=== PATIENT | male | born 1985 | race Caucasian/White ===

== ENCOUNTER 2020-02-25 07:40 | Outpatient (CLI) | payer BC, SELFPAY ==
--- NOTE | 2020-02-25 07:49 | ECHO_ITS ---
Patient Info Name: Hemant Alonzo Age: 34 years : 1985 Gender: Male Ht: 75 in Wt: 190 lbs BSA: 2.14 m2 HR: 80 bpm BP: 132 / 75 mmHg Technical Quality: Good Exam Date: 02/25/2020 8:22 AM Exam Location: [facility] Patient Status: Outpatient Admit Date: 02/25/2020 Staff Ordering Physician: Casper Washington PA-C Petroleum Refinery Worker: Michael Nguyen RDCS, RT Attending Provider: Casper Washington PA-C Referring Physician: Padmini DONALDSON; Exam Type: CA echo doppler color flow Study Info Indications R55 - Syncope and collapse Complete two-dimensional, color flow and Doppler transthoracic echocardiogram is performed. Strain analysis performed. Summary 1. Complete two-dimensional, color flow and Doppler transthoracic echocardiogram is performed. 2. Left ventricular chamber dimension is normal. 3. Left ventricular systolic function is normal, estimated at 55-60%. 4. The left ventricular diastolic function is normal. 5. E/e' 6 is not elevated. 6. Global longitudinal strain is abnormal at -15.1%. 7. Right atrial mass attached to atrial septum measuring 0.8 x 2.0 cm suggestive of non-obstructive atrial myxoma. Consider JUAN for further evaluation if clinically indicated. Left Ventricle Global longitudinal strain is abnormal at -15.1%. E/e' 6 is not elevated. Left ventricular chamber dimension is normal. Left ventricular systolic function is normal, estimated at 55-60%. The left ventricular diastolic function is normal. Right Ventricle Right ventricular chamber dimension is normal. Right ventricular systolic function is normal. Left Atria Left atrial chamber dimension is normal. Right Atria Right atrial mass attached to atrial septum measuring 0.8 x 2.0 cm suggestive of non-obstructive atrial myxoma. Consider JUAN for further evaluation if clinically indicated. Right atrial chamber dimension is normal. Aortic Valve The aortic valve is trileaflet. There is no aortic valve stenosis. There is no aortic valve regurgitation. Pulmonic Valve There is no pulmonic regurgitation. Mitral Valve There is no mitral valve stenosis. There is no mitral valve regurgitation. Tricuspid Valve There is no tricuspid valve regurgitation. Pericardium/Pleural There is no pericardial effusion. Inferior Vena Cava Normal inferior vena cava with >50% collapse upon inspiration consistent with normal right atrial pressure, 5 mmHg. Aorta The aortic root size at the sinus of Valsalva is normal. Left Ventricular Outflow Tract Name Value Normal LVOT 2D LVOT Diameter 2.0 cm LVOT Doppler LVOT Peak Velocity 102 cm/s LVOT Peak Gradient 4 mmHg LVOT Mean Gradient 3 mmHg LVOT VTI 20 cm LVOT VTI/AV VTI Ratio 1.0 LVOT Stroke Volume 65 ml LVOT CO 5.0 l/min LVOT CI 2.3 l/min/m2 Mitral Valve
== END 2020-02-25 07:41 | disposition home or self-care (01) ==
PROVIDERS: PCP Physician Assistant; Visit Provider Physician Assistant
DX: R42 Dizziness and giddiness (principal); R55 Syncope and collapse
CPT/HCPCS: 93306

== ENCOUNTER 2020-10-21 08:36 | Outpatient (CLI) | payer BC, SELFPAY ==
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
[2020-11-16 17:33] VITALS: BMI 25.6
== END 2020-10-24 11:46 | disposition home or self-care (01) ==
PROVIDERS: PCP Physician Assistant; Visit Provider Internal Medicine Cardiovascular Disease
DX: G47.10 Hypersomnia, unspecified (principal)
CPT/HCPCS: 95806

== ENCOUNTER 2020-11-20 09:30 | Emergency (ER) | payer OTHER, BC, SELFPAY ==
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
[2020-11-20 09:40] VITALS: BP 138/85; PULSE 90; RESP 20; TEMP 36.8; O2SAT 100
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
[2020-11-20] MEDS: ACETAMINOPHEN 500 MG TABLET 1000 MG PO (11:16)
[2020-11-20 11:20] VITALS: BP 122/82; PULSE 80; RESP 20; O2SAT 100
== END 2020-11-20 11:25 | disposition home or self-care (01) ==
PROVIDERS: Emergency Provider Emergency Medicine; PCP Physician Assistant
DX: S43.402A Unspecified sprain of left shoulder joint, initial encounter (principal); E78.5 Hyperlipidemia, unspecified; F43.12 Post-traumatic stress disorder, chronic; F41.1 Generalized anxiety disorder; F33.9 Major depressive disorder, recurrent, unspecified; D15.1 Benign neoplasm of heart; V49.00XA Driver injured in collision with unspecified motor vehicles in nontraffic accident, initial encounter
CPT/HCPCS: 73030; 99283; A4565; A9270

== ENCOUNTER 2023-04-10 10:26 | Outpatient (CLI) | payer BC, SELFPAY ==
[2023-04-10 11:47] LABS: Influenza A QL RT-PCR Negative (Negative); Influenza B QL RT-PCR Negative (Negative); RSV RNA, RT-PCR Negative (Negative); SARS-CoV-2 RNA PCR Negative (Negative)
== END 2023-04-10 10:27 | disposition home or self-care (01) ==
LOC: ANHLAB 10:27
PROVIDERS: PCP Physician Assistant; Visit Provider Internal Medicine
DX: J06.9 Acute upper respiratory infection, unspecified (principal); Z20.822 Contact with and (suspected) exposure to COVID-19
CPT/HCPCS: 87637

== ENCOUNTER 2024-10-09 16:11 | Emergency (ER) | payer OTHER, SELFPAY ==
--- NOTE | ~2024-10-09 | XR_ITS ---
EXAMINATION: XR knee RT min 4V DATE: 10/09/2024 16:47 INDICATION: Fall with laceration and anterolateral pain at the right knee TECHNIQUE: Anteroposterior, 2 oblique and crosstable lateral views of the right knee were obtained COMPARISON: None. FINDINGS: Alignment is normal. No fracture. Joint spaces appear normal on nonweightbearing imaging. No joint e ffusion/layering lipohemarthrosis. Linear lucency projecting over the superficial soft tissues anteri or to the patellar tendon likely representing the site of reported laceration. No evident radiopaque foreign bodies. IMPRESSION: 1. Infrapatellar soft tissue laceration. No osseous abnormality, joint effusion or radiopaque foreign bodies at the right knee. Reviewed, dictated and finalized at location A.
--- OUTSIDE RECORDS SUMMARY | 2024-10-09 16:15 | XMS_ITS | Clinical Summary ---
Author Organization [facility] Address [address] [place] [id number] Care Team Providers Care Potato Chip Cooker Machine Name Role Phone Mazin Peraza MD Primary Care Provider [phone] Allergies Active Allergy Reactions Criticality Noted Date Comments Penicillins Rash Medium 11/11/2018 Medications celecoxib (CeleBREX) 200 mg capsule Take 1 capsule (200 mg total) by mouth daily Active sertraline (ZOLOFT) 50 mg tablet Take 1 tablet (50 mg total) by mouth nightly at bedtime 4 Active buPROPion XL (WELLBUTRIN XL) 300 mg 24 hr tablet Take 1 tablet (300 mg total) by mouth every morning 4 Active busPIRone (BUSPAR) 5 mg tablet TAKE 1 TABLET BY MOUTH THREE TIMES DAILY WITH MEALS DISCONTINUE 7.5MG DOSE 4 Active multivitamin tablet Take 1 tablet by mouth daily Active omega-3 fatty acids-fish oil 300-1,000 mg capsule Take 1 capsule (1 g total) by mouth daily Active baclofen (LIORESAL) 10 mg tablet Take 1 tablet (10 mg total) by mouth 2 (two) times a day 9 Active Active Problems No known active problems Social History Tobacco Use Types Packs/Day Years Used Date Smoking Tobacco: Every Day Personal Safety Answer Date Recorded Getting School Help Needed Not on file 05/17 Sex and Gender Information Value Date Recorded Sex Assigned at Not on file 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 Gender Identity Not on file Sexual Orientation Not on file Obstetrics History Last Filed Vital Signs Vital Sign Reading Time Taken Comments Blood Pressure 120/78 08/09/2023 8:46 AM CDT Pulse 82 08/09/2023 8:46 AM CDT Temperature 37.1 C (98.8 F) 08/09/2023 8:46 AM CDT Respiratory Rate 16 08/09/2023 8:46 AM CDT Oxygen Saturation 97% 08/09/2023 8:46 AM CDT Inhaled Oxygen Concentration - - Weight 93 kg (205 lb) 08/09/2023 8:46 AM CDT Height 190.5 cm (6' 3) 08/09/2023 8:46 AM CDT Body Mass Index 25.62 08/09/2023 8:46 AM CDT Plan of Treatment Health Maintenance Due Date Last Done Comments Depression Screening 1985 Hepatitis C Screening 1985 DTaP/Tdap/Td Vaccine (1 - Tdap) 09/06/1994 Varicella Vaccines (1 of 2 - 13+ 2-dose series) 1996 Hepatitis B Screening 09/06/2001 Regular Well Visit/Exam 18-64 09/06/2001 Pneumococcal vaccine <65 (1 of 2 - PCV) 09/06/2002 HPV Vaccines (1 - 3-dose SCDM series) 09/06/2010 Influenza Vaccine (#1) 2024 [place] [employer] [place] [employer] [place] [facility] Care Teams Potato Chip Cooker Machine Relationship Specialty Start Date End Date Mazin Peraza MD [address] [facility] [address] [place] [address] PCP - General 05/28/17
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
--- OUTSIDE RECORDS SUMMARY | 2024-10-09 16:15 | XMS_ITS | Patient Health Record ---
Author Organization [facility] [employer] Address [address] [place] [address] Care Team Providers Care Guard Manager Name Role Phone Sydyady Mazin [place] Primary Care Provider Natalee Moncada Unavailable [phone] Allergies Allergen (clinical drug ingredient) Drug/Non Drug Allergy documented on EMR Reaction Allergy Type Onset Date Status Substance with penicillin structure and antibacterial mechanism of action (substance) Penicillins Unknown Drug Allergy 04/25/2023 Active Reason For Referral No Information Medications Medication SIG (Take, Route, Frequency, Duration) Notes Start Date End Date Status Celecoxib 200 MG Oral 04/25/2023 No t-Taking Baclofen 20 MG Oral PRN 04/25/2023 Acti ve buPROPion HCl ER (XL) 300 MG 1 tablet in the morning Oral Once a day; Duration: 90 days 04/25/2023 Active Acetaminophen-Codeine #3 300-30 MG Oral 04/25/2023 Not-Taking Venlafaxine HCl ER 75 MG Oral 04/25/2023 Not-Taking Cetirizine HCl 10 MG Oral 04/25/2023 Not-Taking Baclofen 10 MG Oral 04/25/2023 Not- Taking Venlafaxine HCl ER 37.5 MG Oral 04/25/2023 Not-Taking QUEtiapine Fumarate 25 MG Oral 04/25/2023 Not-Taking Immunizations Vaccine Route Administration Date Status Comme nts Jose Covid-19 Vaccine Unknown 05/23/2020 Administere d Social History Tobacco Use: Social History Observation Description Date Details (start date - stop date) Current Smoker NA - NA Sex Assigned At : Social History Observation Description Sex Assigned At Male Tobacco Control (Standard) Question Answer Notes Tobacco use: Current smoker How often do you smoke cigarettes? Every day How many cigarettes a day do you smoke? 11-20 How soon after you wake up do you smoke your fir st cigarette? 6-30 minutes Are you interested in quitting? Ready to quit Problems Problem Type SNOMED Code ICD Code Onset Dates Problem Status W/U Status Risk Notes Problem Cannabis dependence (83105656) Cannabis dependence, uncomplicated (F12.20) 05/24/19 Active confirmed Problem Moderate recurrent major depression (73233450) Major depressive disorder, recurrent, moderate (F33.1) 06/21/19 Active confirmed Problem Generalized anxiety disorder (98706401) Generalized anxiety disorder (F41.1) 07/22/19 Active confirmed Problem Posttraumatic stress disorder (43744470) Post-traumatic stress disorder, chronic (F43.12) 06/21/19 24 Active confirmed Problem Primary insomnia (9334372) Primary insomnia (F51.01) 04/25/19 24 Active confirmed Problem Tobacco use (124945570) Tobacco use (Z72.0) 06/21/19 24 Active confirmed Problem Long-term current use of drug therapy (477195552) 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) 04/25/19 24 Active confirmed Problem Panic disorder (677797923) Panic disorder [episodic paroxysmal anxiety] without agoraphobia (F41.0) 05/24/19 24 Active confirmed Problem Mild recurrent major depression (94211184) MDD (major depressive disorder), recurrent episode, mild (F33.0) Active confirmed Vital Signs Heart Rate 111 /min 07/23/2024 Respiratory Rate 16 /min 07/23/2024 Height-cm 190.50 cm 07/23/2024 Blood pressure diastolic 66 mm Hg 07/23/2024 Weight-kg 95.98 kg 07/23/2024 Height 75.00 in 07/23/2024 Blood pressure systolic 90 mm Hg 07/23/2024 Weight 211.6 lbs 07/23/2024 BMI 26.45 kg/m2 07/23/2024 Encounters Encounter Location Date Provider Diagnosis [facility] [address] [address] 01/02/2024 Natalee Burrell Major depressive disorder, recurrent, moderate F33.1 ; Generalized anxiety disorder F41.1 ; Post-traumatic stress disorder, chronic F43.12 ; Panic disorder [episodic paroxysmal anxiety] without agoraphobia F41.0 ; Primary insomnia F51.01 ; Tobacco use Z72.0 ; Cannabis dependence, uncomplicated F12.20 and Other ferry terminal agent (current) drug therapy Z79.899 [facility], [facility] [address] [place] [address] 07/23/2024 Natalee Thery Encounter for screen ing for depression Z13.31 ; MDD (major depressive disorder), recurrent episode, mild F33.0 ; Encounter for screening for cardiovascular disorders Z13.6 ; Generalized anxiety disorder F41.1 ; Post-traumatic stress disorder, chronic F43.12 ; Panic disorder [episodic paroxysmal anxiety] without agoraphobia F41.0 ; Primary insomnia F51.01 ; Tobacco use Z72.0 ; Cannabis dependence, uncomplicated F12.20 ; Other ferry terminal agent (current) drug therapy Z79.899 and Major depressive disorder, recurrent, moderate F33.1 [facility], [facility] [address] [place] [address] 10/17/2023 Natalee Thery Major depressive disorder, recurrent, moderate F33.1 [facility], [facility] [address] [place] [address] 11/22/2023 Natalee Thery Major depressive disorder, recurrent, moderate F33.1 [facility], [facility] [address] [place] [address] 11/22/2023 Natalee Thery Major depressive disorder, recurrent, moderate F33.1 [facility], [facility] [address] [place] [address] 12/19/2023 Natalee Thery [facility], [facility] [address] [place] [address] 12/25/2023 Natalee Thery Major depressive disorder, recurrent, moderate F33.1 [facility], [facility] [address] [place] [address] 12/31/2023 Natalee Thery [facility], [facility] [address] [place] [address] 06/25/2024 Natalee Thery Major depressive disorder, recurrent, moderate F33.1 [facility], [facility] [address] [place] [address] 09/24/2024 Natalee Burrell [facility], [facility] [address] [place] [address] 12/25/2023 Natalee Burrell [facility], [facility] [address] [place] [address] 12/28/2023 Natalee Burrell [facility], [facility] [address] [place] [address] 12/29/2023 Natalee Burrell [facility], [facility] [address] [place] [address] 07/20/2024 Natalee Burrell Assessments Encounter Date Diagnosis (ICD Code) Assessment Notes Treatment Notes Treatment Clinical Notes Section Notes 10/17/2023 Major depressive disorder, recurrent, moderate (ICD-10 - F33.1) 11/22/2023 Major depressive disorder, recurrent, moderate (ICD-10 - F33.1) 11/22/2023 Major depressive disorder, recurrent, moderate (ICD-10 - F33.1) 12/25/2023 Major depressive disorder, recurrent, moderate (ICD-10 - F33.1) 01/02/2024 Major depressive disorder, recurrent, moderate (ICD-10 - F33.1) 01/02/2024 Generalized anxiety disorder (ICD-10 - F41.1) 06/25/2024 Major depressive disorder, recurrent, moderate (ICD-10 - F33.1) 07/23/2024 Encounter for screening for depression (ICD-10 - Z13.31) 1 Depression patient would like to decrease Zoloft 25 mg daily and plan to stop - has 50 mg dose just filled rx - and will split in half until finish then stop Wellbutrin XL 300 mg daily in am 2. Anxiety 3. PTSD STABLE 4. Tobacco Smoking Education Do not smoke. Nicotine and other chemicals in cigarettes and cigars can cause lung damage. Ask your healthcare provider for information if you currently smoke and need help to quit. E-cigarettes or smokeless tobacco still contain nicotine. Talk to your healthcare provider before you use these products. education on decrease to stopping nicotine products and stop smoking hotline given -Quit - Yes [place] Tobacco Quitline Call a Smoking Quitline The [employer] Smoking Quitline, (9-148-44N-QUIT) Smokefree.gov, which connects you with your State's Quitline, (9-484-ACPYFPD) Veterans Smoking Quitline, (0-330-OJTAEWC) 5. Cannabis Cannabis Use Education Recommend decrease/stop cannabis use as it can negatively impact mood, motivation, anxiety, sleep, focus/concentrat ion/memory (vigilance, elasticity, processing and attention); can also contribute to development of psychosis. Recommend decrease/stop cannabis use as it may be negatively impacting mood, motivation, anxiety, sleep, focus; can also contribute to development of psychosis Cannabis/marijua na information: http__s://[place]atar[place]yna.n ih.gov/publicati ons/drugfacts/[place] nnabis-marijuana http__s://Backyard.Ora[employer]/ca wsjjld-edt-wnemu uwk-wgoejpfay-bt hd/ educated on all medications, benefits, side effects and risk, and educated on depression, anxiety, and ADHD, mood d/o and educated on compliance of medications, metabolic and movement d/o education appointment is, continue therapy discussion with patient about course of treatment and patient instructions. education on serotonin syndrome SSRI/SNRI side effects discussed including but not limited to, gastric upset, nausea, vomiting, diarrhea and/or constipation, weight changes, sexual side effects including loss of libido, increased suicidal thoughts/behavio rs in children and young adults, and serotonin syndrome. Medication Management and Follow-Up - Plan: - Schedule follow-up appointments every 1-3 months to monitor the patient's response to the medication regimen. - Reinforce the importance of avoiding recreational drug use due to potential neurotoxicity and interactions with prescribed medications. 07/23/2024 MDD (major depressive disorder), recurrent episode, mild (ICD-10 - F33.0) 1 Depression patient would like to decrease Zoloft 25 mg daily and plan to stop - has 50 mg dose just filled rx - and will split in half until finish then stop Wellbutrin XL 300 mg daily in am 2. Anxiety 3. PTSD STABLE 4. Tobacco Smoking Education Do not smoke. Nicotine and other chemicals in cigarettes and cigars can cause lung damage. Ask your healthcare provider for information if you currently smoke and need help to quit. E-cigarettes or smokeless tobacco still contain nicotine. Talk to your healthcare provider before you use these products. education on decrease to stopping nicotine products and stop smoking hotline given Quit - Yes [place] Tobacco Quitline Call a Smoking Quitline The [employer] Smoking Quitline, (2-756-69W-QUIT) Smokefree.gov, which connects you with your State's Quitline, (7-245-WWULAYV) Veterans Smoking Quitline, (1-628-KVASGQV) 5. Cannabis Cannabis Use Education Recommend decrease/stop cannabis use as it can negatively impact mood, motivation, anxiety, sleep, focus/concentrat ion/memory (vigilance, elasticity, processing and attention); can also contribute to development of psychosis. Recommend decrease/stop cannabis use as it may be negatively impacting mood, motivation, anxiety, sleep, focus; can also contribute to development of psychosis Cannabis/marijua na information: http__s://[place].n ih.gov/publicati ons/drugfacts/[place] nnabis-marijuana http__s://Backyard.OraMet[employer]/ca qcopyy-fml-vsuhf zvn-zwszafqig-ha hd/ educated on all medications, benefits, side effects and risk, and educated on depression, anxiety, and ADHD, mood d/o and educated on compliance of medications, metabolic and movement d/o education appointment is, continue therapy discussion with patient about course of treatment and patient instructions. education on serotonin syndrome SSRI/SNRI side effects discussed including but not limited to, gastric upset, nausea, vomiting, diarrhea and/or constipation, weight changes, sexual side effects including loss of libido, increased suicidal thoughts/behavio rs in children and young adults, and serotonin syndrome. Medication Management and Follow-Up - Plan: - Schedule follow-up appointments every 1-3 months to monitor the patient's response to the medication regimen. - Reinforce the importance of avoiding recreational drug use due to potential neurotoxicity and interactions with prescribed medications. 07/23/2024 Encounter for screening for cardiovascular disorders (ICD-10 - Z13.6) 1 Depression patient would like to decrease Zoloft 25 mg daily and plan to stop - has 50 mg dose just filled rx - and will split in half until finish then stop Wellbutrin XL 300 mg daily in am 2. Anxiety 3. PTSD STABLE 4. Tobacco Smoking Education Do not smoke. Nicotine and other chemicals in cigarettes and cigars can cause lung damage. Ask your healthcare provider for information if you currently smoke and need help to quit. E-cigarettes or smokeless tobacco still contain nicotine. Talk to your healthcare provider before you use these products. education on decrease to stopping nicotine products and stop smoking hotline given Quit - Yes [place] Tobacco Quitline Call a Smoking Quitline The [employer] Smoking Quitline, (0-741-23A-QUIT) Smokefree.gov, which connects you with your State's Quitline, (0-390-KWNKYEB) Veterans Smoking Quitline, (9-822-DCWRDTW) 5. Cannabis Cannabis Use Education Recommend decrease/stop cannabis use as it can negatively impact mood, motivation, anxiety, sleep, focus/concentrat ion/memory (vigilance, elasticity, processing and attention); can also contribute to development of psychosis. Recommend decrease/stop cannabis use as it may be negatively impacting mood, motivation, anxiety, sleep, focus; can also contribute to development of psychosis Cannabis/marijua na information: http__s://[place].n ih.gov/publicati ons/drugfacts/[place] nnabis-marijuana http__s://www.T[employer]et[employer].23andMe/ca ziqqpy-sct-oinga nkj-omdmookqz-qo hd/ educated on all medications, benefits, side effects and risk, and educated on depression, anxiety, and ADHD, mood d/o and educated on compliance of medications, metabolic and movement d/o education appointment is, continue therapy discussion with patient about course of treatment and patient instructions. education on serotonin syndrome SSRI/SNRI side effects discussed including but not limited to, gastric upset, nausea, vomiting, diarrhea and/or constipation, weight changes, sexual side effects including loss of libido, increased suicidal thoughts/behavio rs in children and young adults, and serotonin syndrome. Medication Management and Follow-Up - Plan: - Schedule follow-up appointments every 1-3 months to monitor the patient's response to the medication regimen. - Reinforce the importance of avoiding recreational drug use due to potential neurotoxicity and interactions with prescribed medications. 01/02/2024 Post-traumatic stress disorder, chronic (ICD-10 - F43.12) 07/23/2024 Generalized anxiety disorder (ICD-10 - F41.1) 1 Depression patient would like to decrease Zoloft 25 mg daily and plan to stop - has 50 mg dose just filled rx - and will split in half until finish then stop Wellbutrin XL 300 mg daily in am 2. Anxiety 3. PTSD STABLE 4. Tobacco Smoking Education Do not smoke. Nicotine and other chemicals in cigarettes and cigars can cause lung damage. Ask your healthcare provider for information if you currently smoke and need help to quit. E-cigarettes or smokeless tobacco still contain nicotine. Talk to your healthcare provider before you use these products. education on decrease to stopping nicotine products and stop smoking hotline given 0009-Quit - Yes [place] Tobacco Quitline Call a Smoking Quitline The [employer] Smoking Quitline, (4-661-69W-QUIT) Smokefree.gov, which connects you with your State's Quitline, (1-931-BAPWAWN) Veterans Smoking Quitline, (9-639-DNKFKSW) 5. Cannabis Cannabis Use Education Recommend decrease/stop cannabis use as it can negatively impact mood, motivation, anxiety, sleep, focus/concentrat ion/memory (vigilance, elasticity, processing and attention); can also contribute to development of psychosis. Recommend decrease/stop cannabis use as it may be negatively impacting mood, motivation, anxiety, sleep, focus; can also contribute to development of psychosis Cannabis/marijua na information: http__s://[place]atar[place].n ih.gov/publicati ons/drugfacts/ca nnabis-marijuana http__s://www.Stir.com/ca tbzneq-bhk-opiaa sij-gsutfzlgv-fg hd/ educated on all medications, benefits, side effects and risk, and educated on depression, anxiety, and ADHD, mood d/o and educated on compliance of medications, metabolic and movement d/o education appointment is, continue therapy discussion with patient about course of treatment and patient instructions. education on serotonin syndrome SSRI/SNRI side effects discussed including but not limited to, gastric upset, nausea, vomiting, diarrhea and/or constipation, weight changes, sexual side effects including loss of libido, increased suicidal thoughts/behavio rs in children and young adults, and serotonin syndrome. Medication Management and Follow-Up - Plan: - Schedule follow-up appointments every 1-3 months to monitor the patient's response to the medication regimen. - Reinforce the importance of avoiding recreational drug use due to potential neurotoxicity and interactions with prescribed medications. 01/02/2024 Panic disorder [episodic paroxysmal anxiety] without agoraphobia (ICD-10 - F41.0) 07/23/2024 Post-traumatic stress disorder, chronic (ICD-10 - F43.12) 1 Depression patient would like to decrease Zoloft 25 mg daily and plan to stop - has 50 mg dose just filled rx - and will split in half until finish then stop Wellbutrin XL 300 mg daily in am 2. Anxiety 3. PTSD STABLE 4. Tobacco Smoking Education Do not smoke. Nicotine and other chemicals in cigarettes and cigars can cause lung damage. Ask your healthcare provider for information if you currently smoke and need help to quit. E-cigarettes or smokeless tobacco still contain nicotine. Talk to your healthcare provider before you use these products. education on decrease to stopping nicotine products and stop smoking hotline given 081-Quit - Yes [place] Tobacco Quitline Call a Smoking Quitline The [employer] Smoking Quitline, (1-961-25H-QUIT) Smokefree.gov, which connects you with your State's Quitline, (8-767-JJEWRUI) Veterans Smoking Quitline, (8-623-URBHVZY) 5. Cannabis Cannabis Use Education Recommend decrease/stop cannabis use as it can negatively impact mood, motivation, anxiety, sleep, focus/concentrat ion/memory (vigilance, elasticity, processing and attention); can also contribute to development of psychosis. Recommend decrease/stop cannabis use as it may be negatively impacting mood, motivation, anxiety, sleep, focus; can also contribute to development of psychosis Cannabis/marijua na information: http__s://[place]atar[place]yna.n ih.gov/publicati ons/drugfacts/[place] nnabis-marijuana http__s://Backyard.OraMetrix/ca jnrjsy-usi-gcpmw dti-osukroqcp-ou hd/ educated on all medications, benefits, side effects and risk, and educated on depression, anxiety, and ADHD, mood d/o and educated on compliance of medications, metabolic and movement d/o education appointment is, continue therapy discussion with patient about course of treatment and patient instructions. education on serotonin syndrome SSRI/SNRI side effects discussed including but not limited to, gastric upset, nausea, vomiting, diarrhea and/or constipation, weight changes, sexual side effects including loss of libido, increased suicidal thoughts/behavio rs in children and young adults, and serotonin syndrome. Medication Management and Follow-Up - Plan: - Schedule follow-up appointments every 1-3 months to monitor the patient's response to the medication regimen. - Reinforce the importance of avoiding recreational drug use due to potential neurotoxicity and interactions with prescribed medications. 01/02/2024 Primary insomnia (ICD-10 - F51.01) 01/02/2024 Tobacco use (ICD-10 - Z72.0) 07/23/2024 Panic disorder [episodic paroxysmal anxiety] without agoraphobia (ICD-10 - F41.0) 1 Depression patient would like to decrease Zoloft 25 mg daily and plan to stop - has 50 mg dose just filled rx - and will split in half until finish then stop Wellbutrin XL 300 mg daily in am 2. Anxiety 3. PTSD STABLE 4. Tobacco Smoking Education Do not smoke. Nicotine and other chemicals in cigarettes and cigars can cause lung damage. Ask your healthcare provider for information if you currently smoke and need help to quit. E-cigarettes or smokeless tobacco still contain nicotine. Talk to your healthcare provider before you use these products. education on decrease to stopping nicotine products and stop smoking hotline given Quit - Yes [place] Tobacco Quitline Call a Smoking Quitline The [employer] Smoking Quitline, (3-851-71O-QUIT) Smokefree.gov, which connects you with your State's Quitline, (8-658-JPSKYNS) Veterans Smoking Quitline, (2-422-VFQRQDZ) 5. Cannabis Cannabis Use Education Recommend decrease/stop cannabis use as it can negatively impact mood, motivation, anxiety, sleep, focus/concentrat ion/memory (vigilance, elasticity, processing and attention); can also contribute to development of psychosis. Recommend decrease/stop cannabis use as it may be negatively impacting mood, motivation, anxiety, sleep, focus; can also contribute to development of psychosis Cannabis/marijua na information: http__s://[place]atarzyna.n ih.gov/publicati ons/drugfacts/[place] nnabis-marijuana http__s://Backyard.OraMetrix/ca tgloxs-rat-qbuge qpk-dsbxmsqxm-qj hd/ educated on all medications, benefits, side effects and risk, and educated on depression, anxiety, and ADHD, mood d/o and educated on compliance of medications, metabolic and movement d/o education appointment is, continue therapy discussion with patient about course of treatment and patient instructions. education on serotonin syndrome SSRI/SNRI side effects discussed including but not limited to, gastric upset, nausea, vomiting, diarrhea and/or constipation, weight changes, sexual side effects including loss of libido, increased suicidal thoughts/behavio rs in children and young adults, and serotonin syndrome. Medication Management and Follow-Up - Plan: - Schedule follow-up appointments every 1-3 months to monitor the patient's response to the medication regimen. - Reinforce the importance of avoiding recreational drug use due to potential neurotoxicity and interactions with prescribed medications. 07/23/2024 Primary insomnia (ICD-10 - F51.01) 1 Depression patient would like to decrease Zoloft 25 mg daily and plan to stop - has 50 mg dose just filled rx - and will split in half until finish then stop Wellbutrin XL 300 mg daily in am 2. Anxiety 3. PTSD STABLE 4. Tobacco Smoking Education Do not smoke. Nicotine and other chemicals in cigarettes and cigars can cause lung damage. Ask your healthcare provider for information if you currently smoke and need help to quit. E-cigarettes or smokeless tobacco still contain nicotine. Talk to your healthcare provider before you use these products. education on decrease to stopping nicotine products and stop smoking hotline given 1-261-Quit - Yes [place] Tobacco Quitline Call a Smoking Quitline The [employer] Smoking Quitline, (5-352-11T-QUIT) Smokefree.gov, which connects you with your State's Quitline, (4-898-KJWKBNC) Veterans Smoking Quitline, (2-636-XHITZER) 5. Cannabis Cannabis Use Education Recommend decrease/stop cannabis use as it can negatively impact mood, motivation, anxiety, sleep, focus/concentrat ion/memory (vigilance, elasticity, processing and attention); can also contribute to development of psychosis. Recommend decrease/stop cannabis use as it may be negatively impacting mood, motivation, anxiety, sleep, focus; can also contribute to development of psychosis Cannabis/marijua na information: http__s://[place]atarzyna.n ih.gov/publicati ons/drugfacts/[place] nnabis-marijuana http__s://Backyard.OraMetrix/ca lsqext-qio-jwidy bvm-pzbobxook-ic hd/ educated on all medications, benefits, side effects and risk, and educated on depression, anxiety, and ADHD, mood d/o and educated on compliance of medications, metabolic and movement d/o education appointment is, continue therapy discussion with patient about course of treatment and patient instructions. education on serotonin syndrome SSRI/SNRI side effects discussed including but not limited to, gastric upset, nausea, vomiting, diarrhea and/or constipation, weight changes, sexual side effects including loss of libido, increased suicidal thoughts/behavio rs in children and young adults, and serotonin syndrome. Medication Management and Follow-Up - Plan: - Schedule follow-up appointments every 1-3 months to monitor the patient's response to the medication regimen. - Reinforce the importance of avoiding recreational drug use due to potential neurotoxicity and interactions with prescribed medications. 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 Anxiety 3. PTSD STABLE 4. Tobacco Smoking Education Do not smoke. Nicotine and other chemicals in cigarettes and cigars can cause lung damage. Ask your healthcare provider for information if you currently smoke and need help to quit. E-cigarettes or smokeless tobacco still contain nicotine. Talk to your healthcare provider before you use these products. education on decrease to stopping nicotine products and stop smoking hotline given Quit - Yes [place] Tobacco Quitline Call a Smoking Quitline The [employer] Smoking Quitline, (2-531-53P-QUIT) Smokefree.gov, which connects you with your [facility]'s Quitline, (4-905-DXDYIDT) Veterans Smoking Quitline, (9-452-ZEUUHAO) 5. Cannabis Cannabis Use Education Recommend decrease/stop cannabis use as it can negatively impact mood, motivation, anxiety, sleep, focus/concentrat ion/memory (vigilance, elasticity, processing and attention); can also contribute to development of psychosis. Recommend decrease/stop cannabis use as it may be negatively impacting mood, motivation, anxiety, sleep, focus; can also contribute to development of psychosis Cannabis/marijua na information: http__s://katarzyna.n ih.gov/publicati ons/drugfacts/[place] nnabis-marijuana http__s://www.Stir.23andMe/ca lrfkce-yri-pcruc lod-rohukxuvr-wa hd/ educated on all medications, benefits, side effects and risk, and educated on depression, anxiety, and ADHD, mood d/o and educated on compliance of medications, metabolic and movement d/o education appointment is, continue therapy discussion with patient about course of treatment and patient instructions. education on serotonin syndrome SSRI/SNRI side effects discussed including but not limited to, gastric upset, nausea, vomiting, diarrhea and/or constipation, weight changes, sexual side effects including loss of libido, increased suicidal thoughts/behavio rs in children and young adults, and serotonin syndrome. Medication Management and Follow-Up - Plan: - Schedule follow-up appointments every 1-3 months to monitor the patient's response to the medication regimen. - Reinforce the importance of avoiding recreational drug use due to potential neurotoxicity and interactions with prescribed medications. 07/23/2024 Cannabis dependence, uncomplicated (ICD-10 - F12.20) 1 Depression patient would like to decrease Zoloft 25 mg daily and plan to stop - has 50 mg dose just filled rx - and will split in half until finish then stop Wellbutrin XL 300 mg daily in am 2. Anxiety 3. PTSD STABLE 4. Tobacco Smoking Education Do not smoke. Nicotine and other chemicals in cigarettes and cigars can cause lung damage. Ask your healthcare provider for information if you currently smoke and need help to quit. E-cigarettes or smokeless tobacco still contain nicotine. Talk to your healthcare provider before you use these products. education on decrease to stopping nicotine products and stop smoking hotline given Quit - Yes [place] Tobacco Quitline Call a Smoking Quitline The [employer] Smoking Quitline, (9-756-86Z-QUIT) Smokefree.gov, which connects you with your [facility]'s Quitline, (0-376-LXUEGDK) [employer] Smoking Quitline, (1-507-PFYDXBM) 5. Cannabis Cannabis Use Education Recommend decrease/stop cannabis use as it can negatively impact mood, motivation, anxiety, sleep, focus/concentrat ion/memory (vigilance, elasticity, processing and attention); can also contribute to development of psychosis. Recommend decrease/stop cannabis use as it may be negatively impacting mood, motivation, anxiety, sleep, focus; can also contribute to development of psychosis Cannabis/marijua na information: http__s://katarzyna.n ih.gov/publicati ons/drugfacts/ca nnabis-marijuana http__s://www.Stir.23andMe/ca pzrxfa-ozu-zhyns srf-bhhwezifl-ih hd/ educated on all medications, benefits, side effects and risk, and educated on depression, anxiety, and ADHD, mood d/o and educated on compliance of medications, metabolic and movement d/o education appointment is, continue therapy discussion with patient about course of treatment and patient instructions. education on serotonin syndrome SSRI/SNRI side effects discussed including but not limited to, gastric upset, nausea, vomiting, diarrhea and/or constipation, weight changes, sexual side effects including loss of libido, increased suicidal thoughts/behavio rs in children and young adults, and serotonin syndrome. Medication Management and Follow-Up - Plan: - Schedule follow-up appointments every 1-3 months to monitor the patient's response to the medication regimen. - Reinforce the importance of avoiding recreational drug use due to potential neurotoxicity and interactions with prescribed medications. 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 Anxiety 3. PTSD STABLE 4. Tobacco Smoking Education Do not smoke. Nicotine and other chemicals in cigarettes and cigars can cause lung damage. Ask your healthcare provider for information if you currently smoke and need help to quit. E-cigarettes or smokeless tobacco still contain nicotine. Talk to your healthcare provider before you use these products. education on decrease to stopping nicotine products and stop smoking hotline given -Quit - Yes [place] Tobacco Quitline Call a Smoking Quitline The [employer] Smoking Quitline, (4-694-63X-QUIT) Smokefree.gov, which connects you with your State's Quitline, (1-448-USXPGNX) Veterans Smoking Quitline, (5-404-PVGZWLV) 5. Cannabis Cannabis Use Education Recommend decrease/stop cannabis use as it can negatively impact mood, motivation, anxiety, sleep, focus/concentrat ion/memory (vigilance, elasticity, processing and attention); can also contribute to development of psychosis. Recommend decrease/stop cannabis use as it may be negatively impacting mood, motivation, anxiety, sleep, focus; can also contribute to development of psychosis Cannabis/marijua na information: http__s://katarzyna.n ih.gov/publicati ons/drugfacts/ca nnabis-marijuana http__s://www.OraMetrix/ca uubbla-ooq-eenye jje-qlmjvhobe-my hd/ educated on all medications, benefits, side effects and risk, and educated on depression, anxiety, and ADHD, mood d/o and educated on compliance of medications, metabolic and movement d/o education appointment is, continue therapy discussion with patient about course of treatment and patient instructions. education on serotonin syndrome SSRI/SNRI side effects discussed including but not limited to, gastric upset, nausea, vomiting, diarrhea and/or constipation, weight changes, sexual side effects including loss of libido, increased suicidal thoughts/behavio rs in children and young adults, and serotonin syndrome. Medication Management and Follow-Up - Plan: - Schedule follow-up appointments every 1-3 months to monitor the patient's response to the medication regimen. - Reinforce the importance of avoiding recreational drug use due to potential neurotoxicity and interactions with prescribed medications. 07/23/2024 Major depressive disorder, recurrent, moderate (ICD-10 - F33.1) 1 Depression patient would like to decrease Zoloft 25 mg daily and plan to stop - has 50 mg dose just filled rx - and will split in half until finish then stop Wellbutrin XL 300 mg daily in am 2. Anxiety 3. PTSD STABLE 4. Tobacco Smoking Education Do not smoke. Nicotine and other chemicals in cigarettes and cigars can cause lung damage. Ask your healthcare provider for information if you currently smoke and need help to quit. E-cigarettes or smokeless tobacco still contain nicotine. Talk to your healthcare provider before you use these products. education on decrease to stopping nicotine products and stop smoking hotline given 887-Quit - Yes [place] Tobacco Quitline Call a Smoking Quitline The [employer] Smoking Quitline, (3-561-92M-QUIT) Smokefree.gov, which connects you with your State's Quitline, (6-864-XCQDLKC) Veterans Smoking Quitline, (4-626-LUCPHJI) 5. Cannabis Cannabis Use Education Recommend decrease/stop cannabis use as it can negatively impact mood, motivation, anxiety, sleep, focus/concentrat ion/memory (vigilance, elasticity, processing and attention); can also contribute to development of psychosis. Recommend decrease/stop cannabis use as it may be negatively impacting mood, motivation, anxiety, sleep, focus; can also contribute to development of psychosis Cannabis/marijua na information: http__s://katarzyna.n ih.gov/publicati ons/drugfacts/ca nnabis-marijuana http__s://www.Stir.23andMe/ca edzouu-muy-xfirt ttl-owrqzwdnv-wa hd/ educated on all medications, benefits, side effects and risk, and educated on depression, anxiety, and ADHD, mood d/o and educated on compliance of medications, metabolic and movement d/o education appointment is, continue therapy discussion with patient about course of treatment and patient instructions. education on serotonin syndrome SSRI/SNRI side effects discussed including but not limited to, gastric upset, nausea, vomiting, diarrhea and/or constipation, weight changes, sexual side effects including loss of libido, increased suicidal thoughts/behavio rs in children and young adults, and serotonin syndrome. Medication Management and Follow-Up - Plan: - Schedule follow-up appointments every 1-3 months to monitor the patient's response to the medication regimen. - Reinforce the importance of avoiding recreational drug use due to potential neurotoxicity and interactions with prescribed medications. Plan Of Treatment Next Appt Details Provider Name:Natalee Burrell , 01/14/2025 04:00:00 PM, [address], [facility] [address], [place], [address], Insurance Providers Payer Name Payer Address Payer Phone Subscriber Number Group Number Insured Name Patient Relationship to Insured Coverage Start Date Coverage End Date [facility] [address] [address] [place] [address] [phone] [id number] JESSICA VUONG Self - patient is the insured Medical (General) History Medical History History ICD Code Problems: Cannabis dependence Chronic post-traumatic stress disorder Complex posttraumatic stress disorder Generalized anxiety disorder History of SARS-CoV-2 Long-term drug therapy Moderate recurrent major depression Panic disorder Primary insomnia Tobacco user , Surgical History Surgery Date(Month/Year) Extraction of wisdom tooth ([id number]) al l 4
--- OUTSIDE RECORDS SUMMARY | 2024-10-09 16:15 | XMS_ITS | Clinical Summary ---
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 Gender Identity Not on file Sexual Orientation Not on file Plan of Treatment Health Maintenance Due Date Last Done Comments Annual Physical 09/06/1986 Hepatitis C 09/06/2001 DTaP, Tdap and Td Vaccines ( 1 - Tdap) 09/06/2002 Hepatitis B Vaccines (1 of 3 - 19+ 3-dose series) 09/06/2002 HPV Vaccines (1 - 3-dose SCD M series) 09/06/2010 COVID-19 Vaccine (2023-2 5 season) 2023 Meningococcal B Vaccine Aged Out No l onger eligible based on patient's age to complete this topic Meningococcal Vaccine Aged Out No mag maggie eligible based on patient's age to complete this topic Pneumococcal Vaccine: Pediat rics (0 to 5 Years) and At-Risk Patients (6 to 49 Years) Aged Out No longer eligible b ased on patient's age to complete this topic RSV Immunizations Under 20 Months Aged Out No longer eligible based on patient's age to complete this topic
--- OUTSIDE RECORDS SUMMARY | 2024-10-09 16:15 | XMS_ITS | Referral Summary ---
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
--- OUTSIDE RECORDS SUMMARY | 2024-10-09 16:15 | XMS_ITS | Clinical Summary ---
Author Organization [facility] Address [address] [place] [address] Phone Care Team Providers Care Director Of Planning Name Role Phone Mazin Peraza DO Primary Care Provider [phone] Allergies Active Allergy Reactions Criticality Noted Date Comments Penicillins Rash Low 11/11/2018 Medications ALPRAZolam (XANAX) 1 mg tablet Take 1 mg by mouth 2 times daily. 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 1 10/16/2018 Active baclofen (LIORESAL) 10 mg tablet Take 10 mg by mouth 2 times daily. 1 11/07/2018 Active sertraline (ZOLOFT) 100 mg tablet Take [address] passenger firer. 3 11/06/2018 Active omega-3 fatty acids-fish oil 300-1,000 mg Capsule Take 1 Capsule by mouth daily. Active multivitamin (DAILY-SEBASTIAN) tablet Take 1 Tablet by mouth daily. Active Active Problems No known active problems Social History Tobacco Use Types Packs/Day Years Used Date Smoking Tobacco: Some Days Cigarettes 0.8 10 Smokeless Tobacco: Never Sex and Gender Information Value Date Recorded Sex Assigned at Not on file Legal Sex Male 1:10 PM CDT Gender Identity Not on file Sexual Orientation Not on file Last Filed Vital Signs Vital Sign Reading Time Taken Comments Blood Pressure 120/74 11/11/2018 1:42 PM CDT Pulse 78 11/11/2018 1:42 PM CDT Temperature - - Respiratory Rate - - Oxygen Saturation - - Inhaled Oxygen Concentration - - Weight 74.8 kg (165 lb) 11/11/2018 1:42 PM CDT Height 190.5 cm (6' 3) 11/11/2018 1:42 PM CDT Body Mass Index 20.62 11/11/2018 1:42 PM CDT Plan of Treatment Health Maintenance Due Date Last Done Comments HPV VACCINES (1 - Male 3-dose series) 09/06/1998 DTAP/TDAP/TD VACCINES (1 - Tdap) 09/06/2002 HEPATITIS B VACCINES (1 of 3 - 19+ 3-dose series) 08/17 INFLUENZA VACCINE (#1) 2024 Insurance [facility] [employer] P[employer] Care Teams Director Of Planning Relationship Specialty Start Date End Date Mazin Peraza DO [address] [facility] [address] [place] [address] PCP - General Internal Medicine 11/11/18
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
[2024-10-09 16:22] VITALS: BP 123/79; PULSE 60; RESP 18; TEMP 36.7; O2SAT 97
--- NOTE | 2024-10-09 16:29 | ED_ITS ---
HPI - Extremity Injury (Lower) General Chief Complaint: Extremity Injury, Upper Stated Complaint: fall Time Seen by Provider: 10/09/24 16:15 Source: patient and RN notes reviewed Mode of arrival: ambulatory Limitations: no limitations History of Present Illness HPI Narrative: 39-year-old male Presents Express Care complaining of injury to right knee. Patient [place] was [place] a farm approximately 3 hours ago he was on a farm in a shed standing on a chair trying to clean the shed when the chair when loose started to fall and he caught himself however he landed his right knee on an old girl lid lacerating injury with his right knee. Patient has a laceration from the fall at to his right lower knee. Patient also reports right knee pain. Patient is in his head, loss of consciousness, neck pain, back pain, any other injuries. Patient denies any numbness or tingling. Patient's tetanus is not up-to-date. Patient has a denies any significant past medical history. Related Data Home Medications ?Medication ?Instructions ?Recorded ?Confirmed ?Last Taken ?Type sertraline 50 mg tablet 100 mg PO DAILY 02/04/24 10/09/24 Unknown History bupropion HCl 300 mg 24 hr tablet, mg PO 10/09/24 Unknown History extended release Allergies Allergy/AdvReac Type Severity Reaction Status Date / Time Penicillins Allergy Mild Unknown Verified 10/09/24 16:15 tramadol AdvReac Mild Itching Verified 10/09/24 16:15 Review of Systems Review of Systems: CONSTITUTIONAL: Denies fever, chills, or sweats. EYES: Denies visual changes, redness, or discharge. ENT: Denies rhinorrhea, congestion, sore throat, or otalgia. CARDIOVASCULAR: Denies chest pain, palpitations, or edema. RESPIRATORY: Denies cough or dyspnea. GASTROINTESTINAL: Denies abdominal pain, nausea, vomiting, or diarrhea. GENITOURINARY: Denies dysuria or hematuria. SKIN: Denies rash, wound, or itching. Positive for laceration. MUSCULOSKELETAL: Denies back pain, joint pain, or myalgia. Positive for right knee injury and swelling NEUROLOGIC: Denies headache, numbness, or weakness. PSYCHIATRIC: Denies anxiety or depression. All other systems reviewed are negative, except as documented in HPI. [facility] Past Medical History Medical History Hypersomnia (~10/2020) Dyslipidemia Atrial myxoma Chronic post-traumatic stress disorder Generalized anxiety disorder Moderate recurrent major depression Family History Family History Other Family history of malignant neoplasm of breast Family history of malignant neoplasm of ovary Malignant neoplasm of prostate Social History Social History Smoking status: Current every day smoker Tobacco type: cigarettes Second hand tobacco smoke exposure: No Alcohol intake: former Substance use: current Substance use type: marijuana Current Housing: Decline to Answer Concerned About Future Housing: Decline to Answer Difficulty Paying Gas/Electric Bills: Decline to Answer Difficulty Paying for Meds: Decline to Answer Currently Unemployed: Decline to Answer Education: Decline to Answer Difficulty w/ Childcare or Family Care: Decline to Answer Comments At the time of my signature, I reviewed and agree with the nursing past medical, surgical, social, and family history. There is no relevant family history pertinent to the patient complaint. Exam Narrative: GENERAL: This is a well-nourished, well-developed adult, in no apparent distress. They are non ill-appearing, nontoxic appearing. HEAD: normocephalic, atraumatic. EYES: Sclera clear/white. Vision is grossly intact. Conjunctiva normal. Extraocular movement intact. Pupils PERRLA. EARS: External ears normal Hearing grossly intact. NOSE: External nose normal THROAT: Mucous membranes moist NECK: Neck supple CARDIOVASCULAR: Regular rate and rhythm RESPIRATORY: Respiratory rate normal, respiratory effort nonlabored, no respiratory distress NEURO: awake, alert, and oriented to person, place and time. There were no obvious focal neurologic abnormalities. EXTREMITIES: Right knee: No obvious deformity, swelling, bruising, redness. There is a linear laceration that is horizontal to the anterior medial lower right knee inferior to the patella measuring approximately 2.5 cm long. Laceration approximate well. Low skin tension through full range of motion to laceration. Tenderness to palpation to the right lateral lower knee. Mild tenderness to full range of motion. Capillary refill less than 3 seconds. Normal sensation. Neurovascular status intact distal injury. No valgus or varus laxity. BACK: Nontender without deformity. Course Course Emergency Course: Portions of this record may have been created with voice recognition software Level of Care: Express Care Visit Vital Signs Vital signs: Vital Signs Temperature 98.0 F 10/09/24 16:22 Pulse Rate 60 10/09/24 16:22 Respiratory Rate 18 10/09/24 16:22 Blood Pressure 123/79 10/09/24 16:22 Pulse Oximetry 97 10/09/24 16:22 Oxygen Delivery Room Air 10/09/24 16:22 Temperature 98.0 F 10/09/24 16:22 Pulse Rate 60 10/09/24 16:22 Respiratory Rate 18 10/09/24 16:22 Blood Pressure 123/79 10/09/24 16:22 Pulse Oximetry 97 10/09/24 16:22 Oxygen Delivery Room Air 10/09/24 16:22 Reviewed Procedures Laceration Laceration 1: Date: 10/09/24 Time: 17:15 Site: lower extremity Side (If applicable): right (Knee) Size (cm): 2.5 Description: linear Depth: simple, single layer Local Anesthetic: lidocaine 1% and with epi Amount of anesthesia used (mL): 2 Pre-repair: wound explored, irrigated extensively and minor debridement ====== Skin Level ====== Skin layer closed with: nylon Size (cm): 4-0 Number of sutures: 5 Technique: simple, interrupted ====== Subcutaneous Layer ====== ====== Muscle Layer ====== ====== Tendon Layer ====== Dressing: Bacitracin, nonadherent dressing applied MDM - Extremity Injury (Lower) [facility] Narrative Medical decision making narrative: X-ray of right knee she has no evidence of fracture or acute findings. Laceration appears to be an area of low skin tension. Successful laceration repair to patient's right lower knee. Five sutures were placed. Bacitracin other adherent dressing applied over sutures. His tetanus is updated. Will prophylactically treat patient for infection with doxycycline given penicillin allergy. Discussed physical exam findings. Advised supportive measures and signs/symptoms to go to the ER. Pt is appropriate for outpt treatment and f/u. Differential Diagnosis Differential diagnosis: Likely other (Knee fracture, open fracture, laceration, abrasion, knee sprain, knee contusion) Imaging Data Radiologist's impression: ITS Impressions Knee X-Ray 10/09/24 17:01 IMPRESSION: 1. Infrapatellar soft tissue laceration. No osseous abnormality, joint effusion or radiopaque foreign bodies at the right knee. Critical Care Time Critical Care Time Critical Care Time: No Discharge Plan Discharge Clinical Impression: Knee laceration Qualifiers: Encounter type: initial encounter Laterality: right Qualified Code(s): S81.011A - Laceration without foreign body, right knee, initial encounter Patient Disposition: Home Condition: Stable Instructions: Antibiotic Form, Care For Your Stitches (ED), Laceration (ED) Additional Instructions: The x-ray right knee was negative for any fractures or acute findings. Your sutures need to be removed in 7-10 days. ?Wear the dressing that has been applied for the first 24 hours to allow a scab to start forming. ?After this, you may remove and wash as normal with soap and water. ?Do NOT wash with peroxide or alcohol. ?Do NOT apply antibiotic ointment. You may apply a small amount of Vaseline to the sutures. Wash the wound daily with mild soap and water. Do not soak prescribe the wound. Try to avoid from hyper flexing your knee to prevent a sutures from repeat open. Avoid dirty water until the wound has healed completely and has scabbed over. Dirty water includes lakes, pools, hot tubs, baths tubs, creeks, quarles, oceans, etc. Take tylenol or ibuprofen as needed for pain, following directions on the bottle. ?Follow up with your PCP in 3-5 days for wound check. Take doxycycline as directed. Please wear sunscreen if you are going to be outside while taking doxycycline. Please go to the ER with any signs of infection such as worsening redness, swelling, increased pain, or green or yellow drainage, fevers, nausea, vomiting, chills, body aches, or any serious concerns.. ? Patient Language: Palauan Prescriptions: New doxycycline monohydrate 100 mg capsule 100 mg PO BID 7 Days Qty: 14 0RF No Action bupropion HCl 300 mg tablet extended release 24 hr PO bupropion HCl 150 mg tablet extended release 24 hr 150 mg PO QAM Qty: 90 1RF sertraline 50 mg tablet 100 mg PO DAILY Follow-up/Referrals: UNKNOWN,DOCTOR [Primary Care Provider] - Time of Disposition: 17:37
[2024-10-09] MEDS: TETANUS,DIPHTHERIA,AC PERTUSSIS ADULT (0.5 ML) BOOSTRIX IM (16:30)
== END 2024-10-09 17:39 | disposition home or self-care (01) ==
DX: S81.011A Laceration without foreign body, right knee, initial encounter (principal); W22.8XXA Striking against or struck by other objects, initial encounter; Z23 Encounter for immunization; E78.5 Hyperlipidemia, unspecified; F41.1 Generalized anxiety disorder; F33.9 Major depressive disorder, recurrent, unspecified; F17.210 Nicotine dependence, cigarettes, uncomplicated; F12.90 Cannabis use, unspecified, uncomplicated
CPT/HCPCS: 12001; 73564; 90471; 90715; 99213; G0463

== ENCOUNTER 2025-01-19 09:32 | Outpatient (CLI) | payer OTHER, SELFPAY ==
[2025-01-19 10:13] LABS: Hematocrit 43.7 % (42.0-52.0); Hemoglobin 14.9 g/dL (14.0-18.0); Immature Granulocyte Percent A 0.4 % (0-0.5); Lymphocytes Absolute Auto 3.11 K/mm3 (0.9-3.2); Mean Corpuscular HGB Conc 34.1 g/dl (32-36); Mean Corpuscular Hemoglobin 32.8 pg (26-34); Mean Corpuscular Volume 96.3 fl (80-100); Nucleated Red Blood Cells Absolute Auto 0.000 K/mm3 (0.0-0.012); Nucleated Red Blood Cells Perc 0.0 % (0.0-0.2); Platelet Count Result 285 k/mm3 (150-375); Red Blood Count 4.54 M/mm3 (4.6-6.20); White Blood Count 11.3 K/mm3 (4.5-10.0)
--- OUTSIDE RECORDS SUMMARY | 2025-01-19 10:40 | XMS_ITS | Clinical Summary ---
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
--- OUTSIDE RECORDS SUMMARY | 2025-01-19 10:40 | XMS_ITS | Clinical Summary ---
Author Organization [facility] Address [address] [place] [address] Phone Care Team Providers Care Academic Counselor Name Role Phone Mazin Peraza DO Primary Care Provider [phone] Allergies Active Allergy Reactions Criticality Noted Date Comments Penicillins Rash Low 11/11/2018 Medications ALPRAZolam (XANAX) 1 mg tablet Take 1 mg by mouth 2 times daily. 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 1 10/16/2018 Active baclofen (LIORESAL) 10 mg tablet Take 10 mg by mouth 2 times daily. 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 3 11/06/2018 Active omega-3 fatty acids-fish oil [...] Health Maintenance Due Date Last Done Comments DTAP/TDAP/TD VACCINES (1 - Tdap) 09/06/2002 HEPATITIS B VACCINES (1 of 3 - 19+ 3-dose series) 08/17 HPV VACCINES (1 - 3-dose SCDM series) 09/06/2010 INFLUENZA VACCINE (#1) 2024 Insurance [facility] [employer] ACCESS/TRUE [employer] PPO Care Teams Academic Counselor Relationship Specialty Start Date End Date Mazin Peraza DO [address] [facility] [address] [place] [address] PCP - General Internal Medicine 11/11/18
--- OUTSIDE RECORDS SUMMARY | 2025-01-19 10:40 | XMS_ITS | Clinical Summary ---
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
--- OUTSIDE RECORDS SUMMARY | 2025-01-19 10:41 | XMS_ITS | Patient Health Record ---
Author Organization [facility] [employer] Address [address] [place] [address] Care Team Providers Care Assistant Corporation Counsel Name Role Phone Mazin Peraza DO Primary Care Provider Natalee Moncada Unavailable [phone] Allergies Allergen (clinical drug ingredient) Drug/Non Drug Allergy documented on EMR Reaction Allergy Type Onset Date Status Substance with penicillin structure and antibacterial mechanism of action (substance) Penicillins Unknown Drug Allergy 04/25/2023 Active Reason For Referral No Information Medications Medication SIG (Take, Route, Frequency, Duration) Notes Start Date End Date Status Venlafaxine HCl ER 75 MG Capsule Extended Release 24 Hour Oral 04/25/2023 Not-Taking Celecoxib 200 MG Capsule Oral 04/25/2023 Not-Taking Baclofen 20 MG Tablet Oral PRN 04/25/2023 Active Baclofen 10 MG Tablet Oral 04/25/2023 Not-Taking Acetaminophen-Codeine #3 300-30 MG Tablet Oral 04/25/2023 Not-Taking Cetirizine HCl 10 MG Tablet Oral 04/25/2023 Not-Taking buPROPion HCl ER (XL) 300 MG Tablet Extended Release 24 Hour 1 tablet in the morning Oral Once a day; Duration: 90 days 01/14/2025 Active hydrOXYzine HCl 10 MG Tablet 1 tablet as needed Orally twice a day; Duration: 30 days 01/14/2025 Active Venlafaxine HCl ER 37.5 MG Capsule Extended Release 24 Hour Oral 04/25/2023 Not-Taking QUEtiapine Fumarate 25 MG Tablet Oral 04/25/2023 Not-Taking Immunizations Vaccine Route Administration Date Status Comme david Jose Covid-19 Vaccine Unknown 05/23/2020 Administere d Social History Tobacco Use: Social History Observation Description Date Details (start date - stop date) Current Smoker NA - NA Sex Assigned At : Social History Observation Description Sex Assigned At Male Social History Miscellaneous: Social Info Question Answer Notes Advance Care Planning Are you your own decision-maker Yes Do you have Power of Laundry Housekeeper for Health or Medi yariel? No Tobacco Use: Social Info Question Answer Notes Tobacco Control (Standard) Tobacco use: Current smoker How often do you smoke cigarettes? Every day How many cigarettes a day do you smoke? -20 How soon after you wake up do you smoke your first cigarette? 6-30 minutes Are you interested in quitting? Ready to quit Additional Details Category Social Info Options Details Migrated Social History Migrated Social History Alcohol Intake: None 01/19/2020,Tobacco Years: Current every day smoker 01/19/2020,Smoking Status: 14 04/25/2023 Drug/Alcohol: Do you smoke marijuana? Adm its Do you drink alcohol? No Problems Problem Type SNOMED Code ICD Code Onset Dates Problem Status W/U Status Risk Notes Problem Cannabis dependence (65615318) Cannabis dependence, uncomplicated (F12.20) 05/24/19 24 Active confirmed Problem Moderate recurrent major depression (58932015) Major depressive disorder, recurrent, moderate (F33.1) 06/21/19 24 Active confirmed Problem Generalized anxiety disorder (63701276) Generalized anxiety disorder (F41.1) 07/22/19 24 Active confirmed Problem Posttraumatic stress disorder (68327202) Post-traumatic stress disorder, chronic (F43.12) 06/21/19 24 Active confirmed Problem Primary insomnia (9414181) Primary insomnia (F51.01) 04/25/19 24 Active confirmed Problem Tobacco use (529325838) Tobacco use (Z72.0) 06/21/19 24 Active confirmed Problem Long-term current use of drug therapy (423218914) Other fci (current) drug therapy (Z79.899) 04/25/19 24 Active confirmed Problem Panic disorder (955672364) Panic disorder [episodic paroxysmal anxiety] without agoraphobia (F41.0) 05/24/19 24 Active confirmed Problem Mild recurrent major depression (34803312) MDD (major depressive disorder), recurrent episode, mild (F33.0) Active confirmed Vital Signs Heart Rate 95 /min 01/14/2025 Respiratory Rate 16 /min 01/14/2025 Height-cm 190.5 cm 01/14/2025 Blood pressure diastolic 76 mm Hg 01/14/2025 Weight-kg 92.08 kg 01/14/2025 Height 75.00 in 01/14/2025 Blood pressure systolic 123 mm Hg 01/14/2025 Weight 203 lbs 01/14/2025 BMI 25.37 kg/m2 01/14/2025 Encounters Encounter Location Date Provider Diagnosis [facility] [address] [address] 07/23/2024 Natalee Thercristian Encounter for screen ing for depression Z13.31 ; MDD (major depressive disorder), recurrent episode, mild F33.0 ; Encounter for screening for cardiovascular disorders Z13.6 ; Generalized anxiety disorder F41.1 ; Post-traumatic stress disorder, chronic F43.12 ; Panic disorder [episodic paroxysmal anxiety] without agoraphobia F41.0 ; Primary insomnia F51.01 ; Tobacco use Z72.0 ; Cannabis dependence, uncomplicated F12.20 ; Other intermediate card tender (current) drug therapy Z79.899 and Major depressive disorder, recurrent, moderate F33.[address] [address] 01/14/2025 Natalee Thercristian MDD (major depressiv e disorder), recurrent episode, mild F33.0 ; Generalized anxiety disorder F41.1 ; Panic disorder [episodic paroxysmal anxiety] without agoraphobia F41.0 ; Primary insomnia F51.01 ; Tobacco use Z72.0 and Cannabis dependence, uncomplicated F12.[address] [address] 06/25/2024 Natalee Thercristian Major depressive disorder, recurrent, moderate F33.[address] [address] 09/24/2024 Natalee Thery [address] [address] 07/20/2024 Natalee Burrell Assessments Encounter Date Diagnosis (ICD Code) Assessment Notes Treatment Notes Treatment Clinical Notes Section Notes 06/25/2024 Major depressive disorder, recurrent, moderate (ICD-10 [...] nicotine products and stop smoking hotline given 893-Quit - Yes [place] Tobacco Quitline Call a Smoking Quitline The [employer]'s Smoking Quitline, (8-276-44Y-QUIT) [employer].gov, which connects you with your [facility]'s Quitline, (0-579-HZZXMEL) [facility] Smoking Quitline, (5-045-YCSJDMA) 5. Cannabis Cannabis Use Education Recommend decrease/stop cannabis use as it can negatively impact mood, motivation, anxiety, sleep, focus/concentrat ion/memory (vigilance, elasticity, processing and attention); can also contribute to development of psychosis. Recommend decrease/stop cannabis use as it may be negatively impacting mood, motivation, anxiety, sleep, focus; can also contribute to development of psychosis Cannabis/marijua na information: http__s://katarzyna.n ih.gov/publicati ons/drugfacts/[place] nnabis-marijuana http__s://www.[employer].com/ca awzbfw-ffb-deeim bkl-kdppzijlz-gn hd/ educated on all medications, benefits, side [...] nicotine products and stop smoking hotline given 648-Quit - Yes [place] Tobacco Quitline Call a Smoking Quitline The [employer]'s Smoking Quitline, (8-564-16R-QUIT) Smokefree.gov, which connects you with your State's Quitline, (1-942-MNTSKOK) [facility] Smoking Quitline, (5-319-BNVAWHU) 5. Cannabis Cannabis Use Education Recommend decrease/stop cannabis use as it can negatively impact mood, motivation, anxiety, sleep, focus/concentrat ion/memory (vigilance, elasticity, processing and attention); can also contribute to development of psychosis. Recommend decrease/stop cannabis use as it may be negatively impacting mood, motivation, anxiety, sleep, focus; can also contribute to development of psychosis Cannabis/marijua na information: http__s://katarzyna.n ih.gov/publicati ons/drugfacts/[place] nnabis-marijuana http__s://www.[employer]/ca enzjxl-jnu-eohxv kfm-brgdwdsxg-by hd/ educated on all medications, benefits, side [...] potential neurotoxicity and interactions with prescribed medications. 01/14/2025 Generalized anxiety disorder (ICD-10 - F41.1) Generalized Anxiety Disorder: Care Instructions material was published 1 Depression Wellbutrin XL 300 mg daily in am 2. Anxiety discuss and educated on adding Vistaril 10 MG twice a day PRN for anxiety 3. PTSD STABLE 4. Tobacco Smoking Education [...] nicotine products and stop smoking hotline given 537-Quit - Yes [place] Tobacco Quitline Call a Smoking Quitline The [employer]'s Smoking Quitline, (0-771-30K-QUIT) Smokefree.gov, which connects you with your State's Quitline, (2-599-PNRSFXQ) Veterans Smoking Quitline, (5-911-OSITQCF) 5. Cannabis Cannabis Use Education Recommend decrease/stop cannabis use as it can negatively impact mood, motivation, anxiety, sleep, focus/concentrat ion/memory (vigilance, elasticity, processing and attention); can also contribute to development of psychosis. Recommend decrease/stop cannabis use as it may be negatively impacting mood, motivation, anxiety, sleep, focus; can also contribute to development of psychosis Cannabis/marijua na information: http__s://katarzyna.n ih.gov/publicati ons/drugfacts/[place] nnabis-marijuana http__s://www.[employer].com/ca zibtsp-iaz-glwla msf-asydljkff-xm hd/ educated on all medications, benefits, side [...] - Plan: - Schedule follow-up appointments every 6 months to monitor the patient's response to the medication regimen. - Reinforce the importance of avoiding recreational drug use due to potential neurotoxicity and interactions with prescribed medications. 01/14/2025 MDD (major depressive disorder), recurrent episode, mild (ICD-10 - F33.0) 1 Depression Wellbutrin XL 300 mg daily in am 2. Anxiety discuss and educated on adding Vistaril 10 MG twice a day PRN for anxiety 3. PTSD STABLE 4. Tobacco Smoking Education [...] stop smoking hotline given -Quit - Yes [place] Tobacco Quitline Call a Smoking Quitline The [employer]'s Smoking Quitline, (2-493-24V-QUIT) Smokefree.gov, which connects you with your State's Quitline, (5-433-VVZIXXU) Veterans Smoking Quitline, (7-591-OMKEQNW) 5. Cannabis Cannabis Use Education Recommend decrease/stop cannabis use as it can negatively impact mood, motivation, anxiety, sleep, focus/concentrat ion/memory (vigilance, elasticity, processing and attention); can also contribute to development of psychosis. Recommend decrease/stop cannabis use as it may be negatively impacting mood, motivation, anxiety, sleep, focus; can also contribute to development of psychosis Cannabis/marijua na information: http__s://katarzyna.n ih.gov/publicati ons/drugfacts/ca nnabis-marijuana http__s://www.[employer]Return/ca fmjxbo-agz-iqhpr pvc-xomsuonag-py hd/ educated on all medications, benefits, side [...] - Plan: - Schedule follow-up appointments every 6 months to monitor the patient's response to the medication regimen. - Reinforce the importance of avoiding recreational drug use due to potential neurotoxicity and interactions with prescribed medications. 01/14/2025 Panic disorder [episodic paroxysmal anxiety] without agoraphobia (ICD-10 - F41.0) Panic Attacks: Care Instructions material was published 1 Depression Wellbutrin XL 300 mg daily in am 2. Anxiety discuss and educated on adding Vistaril 10 MG twice a day PRN for anxiety 3. PTSD STABLE 4. Tobacco Smoking Education [...] stop smoking hotline given Quit - Yes [place] Tobacco Quitline Call a Smoking Quitline The [employer]'s Smoking Quitline, (8-112-29P-QUIT) Smokefree.gov, which connects you with your State's Quitline, (4-745-BHQOIDU) Veterans Smoking Quitline, (1-794-CAQXIYT) 5. Cannabis Cannabis Use Education Recommend decrease/stop cannabis use as it can negatively impact mood, motivation, anxiety, sleep, focus/concentrat ion/memory (vigilance, elasticity, processing and attention); can also contribute to development of psychosis. Recommend decrease/stop cannabis use as it may be negatively impacting mood, motivation, anxiety, sleep, focus; can also contribute to development of psychosis Cannabis/marijua na information: http__s://katarzyna.n ih.gov/publicati ons/drugfacts/[place] nnabis-marijuana http__s://www.[employer]Return/ca uywcjs-cqw-cyrmj voy-riaqvdckq-hb hd/ educated on all medications, benefits, side [...] - Plan: - Schedule follow-up appointments every 6 months to monitor the patient's response to [...] stop smoking hotline given -Quit - Yes [place] Tobacco Quitline Call a Smoking Quitline The [employer] [facility] [employer] Smoking Quitline, (2-446-56D-QUIT) Smokefree.gov, which connects you with your State's Quitline, (4-503-SRHNCIW) Veterans Smoking Quitline, (6-688-NKWSEKU) 5. Cannabis Cannabis Use Education Recommend decrease/stop cannabis use as it can negatively impact mood, motivation, anxiety, sleep, focus/concentrat ion/memory (vigilance, elasticity, processing and attention); can also contribute to development of psychosis. Recommend decrease/stop cannabis use as it may be negatively impacting mood, motivation, anxiety, sleep, focus; can also contribute to development of psychosis Cannabis/marijua na information: http__s://katarzyna.n ih.gov/publicati ons/drugfacts/[place] nnabis-marijuana http__s://[employer].ClaimReturn/ca rpabxe-tzd-mkslp jdo-ezphzqxio-oa hd/ educated on all medications, benefits, side [...] neurotoxicity and interactions with prescribed medications. 07/23/2024 Generalized anxiety disorder (ICD-10 - F41.1) [...] stop smoking hotline given Quit - Yes [place] Tobacco Quitline Call a Smoking Quitline The [employer] Smoking Quitline, (3-110-00N-QUIT) Smokefree.gov, which connects you with your State's Quitline, (8-138-XQOHGXE) Veterans Smoking Quitline, (5-067-FFIPFPR) 5. Cannabis Cannabis Use Education Recommend decrease/stop cannabis use as it can negatively impact mood, motivation, anxiety, sleep, focus/concentrat ion/memory (vigilance, elasticity, processing and attention); can also contribute to development of psychosis. Recommend decrease/stop cannabis use as it may be negatively impacting mood, motivation, anxiety, sleep, focus; can also contribute to development of psychosis Cannabis/marijua na information: http__s://katarzyna.n ih.gov/publicati ons/drugfacts/[place] nnabis-marijuana http__s://[employer]US.iLumen.[employer]/ca usbsdk-yxw-nqtqb ngq-djnemjibw-mc hd/ educated on all medications, benefits, side [...] potential neurotoxicity and interactions with prescribed medications. 01/14/2025 Primary insomnia (ICD-10 - F51.01) Insomnia: Care Instructions material was published 1 Depression Wellbutrin XL 300 mg daily in am 2. Anxiety discuss and educated on adding Vistaril 10 MG twice a day PRN for anxiety 3. PTSD STABLE 4. Tobacco Smoking Education [...] stop smoking hotline given Quit - Yes [place] Tobacco Quitline Call a Smoking Quitline The [employer] [facility] [employer]'s Smoking Quitline, (4-671-43M-QUIT) Smokefree.gov, which connects you with your State's Quitline, (5-859-DHNSJEG) Veterans Smoking Quitline, (8-542-ZUGSFPL) 5. Cannabis Cannabis Use Education Recommend decrease/stop cannabis use as it can negatively impact mood, motivation, anxiety, sleep, focus/concentrat ion/memory (vigilance, elasticity, processing and attention); can also contribute to development of psychosis. Recommend decrease/stop cannabis use as it may be negatively impacting mood, motivation, anxiety, sleep, focus; can also contribute to development of psychosis Cannabis/marijua na information: http__s://katarzyna.n ih.gov/publicati ons/drugfacts/[place] nnabis-marijuana http__s://www.[employer]/ca vxxpfl-awn-ujccs ptq-opnqfexqu-an hd/ educated on all medications, benefits, side [...] - Plan: - Schedule follow-up appointments every 6 months to monitor the patient's response to the medication regimen. - Reinforce the importance of avoiding recreational drug use due to potential neurotoxicity and interactions with prescribed medications. 01/14/2025 Tobacco use (ICD-10 - Z72.0) Deciding About Using Medicines To Quit Smoking material was published, Stopping Smokeless Tobacco Use: Care Instructions material was published, Learning About Benefits of Quitting Smoking material was published, Quitting Tobacco: Care Instructions material was published 1 Depression Wellbutrin XL 300 mg daily in am 2. Anxiety discuss and educated on adding Vistaril 10 MG twice a day PRN for anxiety 3. PTSD STABLE 4. Tobacco Smoking Education [...] stop smoking hotline given -Quit - Yes [place] Tobacco Quitline Call a Smoking Quitline The [employer] [facility] [employer]'s Smoking Quitline, (3-012-27S-QUIT) Smokefree.gov, which connects you with your State's Quitline, (9-907-VBEZRPN) Veterans Smoking Quitline, (8-794-OCNTGBV) 5. Cannabis Cannabis Use Education Recommend decrease/stop cannabis use as it can negatively impact mood, motivation, anxiety, sleep, focus/concentrat ion/memory (vigilance, elasticity, processing and attention); can also contribute to development of psychosis. Recommend decrease/stop cannabis use as it may be negatively impacting mood, motivation, anxiety, sleep, focus; can also contribute to development of psychosis Cannabis/marijua na information: http__s://katarzyna.n ih.gov/publicati ons/drugfacts/ca nnabis-marijuana http__s://www.[employer].com/ca bxdnof-qqy-jiekh ftc-vwumdpipy-wa hd/ educated on all medications, benefits, side [...] - Plan: - Schedule follow-up appointments every 6 months to monitor the patient's response to the medication regimen. - Reinforce the importance of avoiding recreational drug use due to potential neurotoxicity and interactions with prescribed medications. 07/23/2024 Post-traumatic stress disorder, chronic (ICD-10 - [...] nicotine products and stop smoking hotline given 537-Quit - Yes [place] Tobacco Quitline Call a Smoking Quitline The [employer]'s Smoking Quitline, (9-965-34W-QUIT) Smokefree.gov, which connects you with your State's Quitline, (8-500-OWPLOVP) Veterans Smoking Quitline, (9-127-EIIQSZL) 5. Cannabis Cannabis Use Education Recommend decrease/stop cannabis use as it can negatively impact mood, motivation, anxiety, sleep, focus/concentrat ion/memory (vigilance, elasticity, processing and attention); can also contribute to development of psychosis. Recommend decrease/stop cannabis use as it may be negatively impacting mood, motivation, anxiety, sleep, focus; can also contribute to development of psychosis Cannabis/marijua na information: http__s://katarzyna.n ih.gov/publicati ons/drugfacts/ca nnabis-marijuana http__s://www.[employer].com/ca efktsd-tjk-rgnxv ovg-fmivbbnnb-zj hd/ educated on all medications, benefits, side [...] neurotoxicity and interactions with prescribed medications. 07/23/2024 Panic disorder [episodic paroxysmal anxiety] without [...] stop smoking hotline given Quit - Yes [place] Tobacco Quitline Call a Smoking Quitline The [employer]'s Smoking Quitline, (2-150-01X-QUIT) Smokefree.gov, which connects you with your State's Quitline, (7-236-WDKHLDE) Veterans Smoking Quitline, (7-397-ZYZUFBX) 5. Cannabis Cannabis Use Education Recommend decrease/stop cannabis use as it can negatively impact mood, motivation, anxiety, sleep, focus/concentrat ion/memory (vigilance, elasticity, processing and attention); can also contribute to development of psychosis. Recommend decrease/stop cannabis use as it may be negatively impacting mood, motivation, anxiety, sleep, focus; can also contribute to development of psychosis Cannabis/marijua na information: http__s://katarzyna.n ih.gov/publicati ons/drugfacts/ca nnabis-marijuana http__s://www.[employer]/ca qqsvvc-vjn-guwct gmi-rxesywluc-ww hd/ educated on all medications, benefits, side [...] potential neurotoxicity and interactions with prescribed medications. 01/14/2025 Cannabis dependence, uncomplicated (ICD-10 - F12.20) Learning About Cannabis Use Disorder material was published, Marijuana Use: Care Instructions material was published, Substance Use Disorder: Care Instructions material was published 1 Depression Wellbutrin XL 300 mg daily in am 2. Anxiety discuss and educated on adding Vistaril 10 MG twice a day PRN for anxiety 3. PTSD STABLE 4. Tobacco Smoking Education [...] stop smoking hotline given Quit - Yes [place] Tobacco Quitline Call a Smoking Quitline The [employer] Smoking Quitline, (0-883-08R-QUIT) Smokefree.gov, which connects you with your State's Quitline, (2-280-XGFCOVJ) Veterans Smoking Quitline, (4-557-FMZBCLP) 5. Cannabis Cannabis Use Education Recommend decrease/stop cannabis use as it can negatively impact mood, motivation, anxiety, sleep, focus/concentrat ion/memory (vigilance, elasticity, processing and attention); can also contribute to development of psychosis. Recommend decrease/stop cannabis use as it may be negatively impacting mood, motivation, anxiety, sleep, focus; can also contribute to development of psychosis Cannabis/marijua na information: http__s://katarzyna.n ih.gov/publicati ons/drugfacts/[place] nnabis-marijuana http__s://[employer]Return/ca scvmzo-yqc-zfary qkd-uffuepsrk-ud hd/ educated on all medications, benefits, side [...] - Plan: - Schedule follow-up appointments every 6 months to monitor the patient's response to [...] stop smoking hotline given -Quit - Yes [place] Tobacco Quitline Call a Smoking Quitline The [employer] [facility] [employer] Smoking Quitline, (7-136-91E-QUIT) Smokefree.gov, which connects you with your State's Quitline, (6-858-MLKBTIY) Veterans Smoking Quitline, (9-491-SEBOXXB) 5. Cannabis Cannabis Use Education Recommend decrease/stop cannabis use as it can negatively impact mood, motivation, anxiety, sleep, focus/concentrat ion/memory (vigilance, elasticity, processing and attention); can also contribute to development of psychosis. Recommend decrease/stop cannabis use as it may be negatively impacting mood, motivation, anxiety, sleep, focus; can also contribute to development of psychosis Cannabis/marijua na information: http__s://katarzyna.n ih.gov/publicati ons/drugfacts/ca nnabis-marijuana http__s://[employer]/ca ptbgig-mwq-fuffw wpj-utpnapohx-lg hd/ educated on all medications, benefits, side [...] neurotoxicity and interactions with prescribed medications. 07/23/2024 Tobacco use (ICD-10 - Z72.0) 1 [...] stop smoking hotline given Quit - Yes [place] Tobacco Quitline Call a Smoking Quitline The [employer] Smoking Quitline, (1-282-36R-QUIT) Smokefree.gov, which connects you with your State's Quitline, (4-031-DDPPSAQ) Veterans Smoking Quitline, (8-620-TJDDTOD) 5. Cannabis Cannabis Use Education Recommend decrease/stop cannabis use as it can negatively impact mood, motivation, anxiety, sleep, focus/concentrat ion/memory (vigilance, elasticity, processing and attention); can also contribute to development of psychosis. Recommend decrease/stop cannabis use as it may be negatively impacting mood, motivation, anxiety, sleep, focus; can also contribute to development of psychosis Cannabis/marijua na information: http__s://katarzyna.n ih.gov/publicati ons/drugfacts/ca nnabis-marijuana http__s://[employer]Return/ca tbnnqu-qno-czkty gpi-nbehsjhuk-yl hd/ educated on all medications, benefits, side [...] stop smoking hotline given Quit - Yes [place] Tobacco Quitline Call a Smoking Quitline The [employer]'s Smoking Quitline, (4-806-68T-QUIT) Smokefree.gov, which connects you with your State's Quitline, (6-240-PUKTFYT) Veterans Smoking Quitline, (5-117-BGPWEWD) 5. Cannabis Cannabis Use Education Recommend decrease/stop cannabis use as it can negatively impact mood, motivation, anxiety, sleep, focus/concentrat ion/memory (vigilance, elasticity, processing and attention); can also contribute to development of psychosis. Recommend decrease/stop cannabis use as it may be negatively impacting mood, motivation, anxiety, sleep, focus; can also contribute to development of psychosis Cannabis/marijua na information: http__s://katarzyna.n ih.gov/publicati ons/drugfacts/[place] nnabis-marijuana http__s://www.[employer]umen.[employer]/ca ddcuya-jwg-hcwop dye-fljqzpogv-pj hd/ educated on all medications, benefits, side [...] and interactions with prescribed medications. 07/23/2024 Other intermediate card tender (current) drug therapy (ICD-10 - Z79.899) 1 [...] nicotine products and stop smoking hotline given 0Quit - Yes [place] Tobacco Quitline Call a Smoking Quitline The [employer]'s Smoking Quitline, (9-459-49Q-QUIT) Smokefree.gov, which connects you with your [facility]'s Quitline, (5-342-JTVVETJ) Veterans Smoking Quitline, (8-648-EYIVJTM) 5. Cannabis Cannabis Use Education Recommend decrease/stop cannabis use as it can negatively impact mood, motivation, anxiety, sleep, focus/concentrat ion/memory (vigilance, elasticity, processing and attention); can also contribute to development of psychosis. Recommend decrease/stop cannabis use as it may be negatively impacting mood, motivation, anxiety, sleep, focus; can also contribute to development of psychosis Cannabis/marijua na information: http__s://katarzyna.n ih.gov/publicati ons/drugfacts/[place] nnabis-marijuana http__s://www.[employer]/ca cweysf-gqy-mmfew qhe-enopixfsz-ns hd/ educated on all medications, benefits, side [...] nicotine products and stop smoking hotline given 314-Quit - Yes [place] Tobacco Quitline Call a Smoking Quitline The [employer]'s Smoking Quitline, (3-282-56U-QUIT) Smokefree.gov, which connects you with your State's Quitline, (7-419-LSOIOKI) Veterans Smoking Quitline, (2-915-WNOLWQO) 5. Cannabis Cannabis Use Education Recommend decrease/stop cannabis use as it can negatively impact mood, motivation, anxiety, sleep, focus/concentrat ion/memory (vigilance, elasticity, processing and attention); can also contribute to development of psychosis. Recommend decrease/stop cannabis use as it may be negatively impacting mood, motivation, anxiety, sleep, focus; can also contribute to development of psychosis Cannabis/marijua na information: http__s://katarzyna.n ih.gov/publicati ons/drugfacts/[place] nnabis-marijuana http__s://www.[employer]/ca duamxz-ayr-jwerh ykr-kqxwgrmfk-da hd/ educated on all medications, benefits, side [...] potential neurotoxicity and interactions with prescribed medications. 01/14/2025 Other Bupropion material was published, Hydroxyzine material was published 1 Depression Wellbutrin XL 300 mg daily in am 2. Anxiety discuss and educated on adding Vistaril 10 MG twice a day PRN for anxiety 3. PTSD STABLE 4. Tobacco Smoking Education [...] nicotine products and stop smoking hotline given 965Quit - Yes [place] Tobacco Quitline Call a Smoking Quitline The [employer]'s Smoking Quitline, (4-495-13Y-QUIT) Smokefree.gov, which connects you with your State's Quitline, (9-600-DSCKMBL) Veterans Smoking Quitline, (1-439-MNDXZIL) 5. Cannabis Cannabis Use Education Recommend decrease/stop cannabis use as it can negatively impact mood, motivation, anxiety, sleep, focus/concentrat ion/memory (vigilance, elasticity, processing and attention); can also contribute to development of psychosis. Recommend decrease/stop cannabis use as it may be negatively impacting mood, motivation, anxiety, sleep, focus; can also contribute to development of psychosis Cannabis/marijua na information: http__s://katarzyna.n ih.gov/publicati ons/drugfacts/[place] nnabis-marijuana http__s://www.[employer]/ca yrtmti-ksf-dsejy dii-qoxzubehn-ay hd/ educated on all medications, benefits, side [...] - Plan: - Schedule follow-up appointments every 6 months to monitor the patient's response to the medication regimen. - Reinforce the importance of avoiding recreational drug use due to potential neurotoxicity and interactions with prescribed medications. Plan Of Treatment Next Appt Details Provider Name:Natalee Burrell , 07/13/2025 04:00:00 PM, [address], [address], [place], [address], Insurance Providers Payer Name Payer Address Payer Phone Subscriber Number Group Number Insured Name Patient Relationship to Insured Coverage Start Date Coverage End Date r [address] [address] [place] [address] [id number] JESSICA VUONG Self - patient is the insured Medical (General) History Medical History History ICD Code Problems: Cannabis dependence Chronic post-traumatic stress disorder Complex posttraumatic stress disorder Generalized anxiety disorder History of SARS-CoV-2 Long-term drug therapy Moderate recurrent major depression Panic disorder Primary insomnia Tobacco user , Surgical History Surgery Date(Month/Year) Extraction of wisdom tooth ([id number]) al l 4
[2025-01-19 10:42] LABS: Alanine Aminotransferase 20 U/L (6-50); Albumin Level 4.4 g/dL (3.5-5.1); Alkaline Phosphatase 69 U/L (38-126); Anion Gap 7 mmol/L (4-12); Aspartate Amino Transferase 21 U/L (17-59); Bilirubin,Total 0.4 mg/dL (0.2-1.3); Blood Urea Nitrogen 11 mg/dL (9-20); Calcium 9.4 mg/dL (8.4-10.2); Carbon Dioxide 28 mmol/L (22-30); Chloride 105 mmol/L (98-107); Cholesterol 161 mg/dL (0-200); Estimated Glomerular Filt Rate > 60; Glucose 108 mg/dL (65-110); HDL Direct 37 mg/dL; Potassium 4.4 mmol/L (3.4-5.0); Sodium 140 mmol/L (137-145); Total Protein 7.3 g/dL (6.3-8.2); Triglycerides 56 mg/dL (<150)
== END 2025-01-19 09:33 | disposition home or self-care (01) ==
LOC: ANHLAB 09:33
PROVIDERS: PCP Nurse Practitioner; Visit Provider Nurse Practitioner
DX: E78.5 Hyperlipidemia, unspecified (principal); Z00.00 Encounter for general adult medical examination without abnormal findings
CPT/HCPCS: 36415; 80053; 80061; 85025